=== PATIENT | female | born 2005 | race Caucasian/White ===

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

== ENCOUNTER 2024-01-19 11:54 | Emergency (ER) | payer OTHER, SELFPAY ==
[2024-01-19 11:58] VITALS: BP 123/77; PULSE 93; RESP 20; TEMP 36.6; O2SAT 99
--- NOTE | 2024-01-19 12:35 | ED.SKABFB ---
HPI - Skin/Abscess/Foreign Bdy General Chief complaint: Skin/Abscess/Foreign Body Stated complaint: rash Time Seen by Provider: 01/19/24 12:15 Source: patient, RN notes reviewed and old records reviewed Mode of arrival: ambulatory Limitations: no limitations History of Present Illness HPI narrative: 18 year old female presents to [facility] with complaints of rash to her right antecubital area and also behind her left knee. Patient reports that she was treated with antibiotic and ointment in October and did get better but not completely resolved. Patient reports that initially had some yellow crusty scabbing now areas are just dry and crusty with continued itching present. MD complaint: rash Onset (ago): month(s) (3 initially yellowish crusting ) Location: RUE (antecubical) and LLE Severity: moderate Quality: pruritic Treatments prior to arrival: other (previously treated with antibiotic and mupirocin) Related Data Allergies Allergy/AdvReac Type Severity Reaction Status Date / Time No Known Allergies Allergy Verified 12/14/23 10:51 Review of Systems Review of Systems: CONSTITUTIONAL: Denies fever, chills, or sweats. CARDIOVASCULAR: Denies chest pain, palpitations, or edema. RESPIRATORY: Denies cough or dyspnea. SKIN: Reports rash to her right forearm in antecubital area which started as pustules now red irritated rash, also rash to area behind left knee red irritated no drainage. MUSCULOSKELETAL: Denies joint pain or myalgia. NEUROLOGIC: Denies headache, numbness, or weakness. All systems reviewed & are unremarkable except as noted in HPI and below PMFSH Past Medical History Medical History Fracture of right wrist Surgical History Surgical History No history of previous surgery Family History Family History Mother Family history non-contributory Social History Social History Smoking status: Never smoker Alcohol intake: never Substance use: never Living arrangements: with family Additional living arrangements comments: Lives with uncle Occupation/Education: student Gender identity (if verbalized by the patient): Female Comments At time of signature, agree with nursing past medical, surgical, social and family history. There is no relevant family history pertinent to the presenting complaint Exam Narrative: GENERAL: Well-appearing, well-nourished, and in no acute distress. HEAD: Normocephalic, atraumatic. EYES: PERRLA, conjunctivae clear, and EOMI. ENT: Mucous membranes moist. Oropharynx without edema, erythema or lesions. NECK: Supple. No lymphadenopathy CHEST: Clear to auscultation. No respiratory distress.SAO2 99% on room air HEART: Regular rate and rhythm. SKIN: Warm, dry.? Patches of erythema red sores with itching no drainage present initially rash had yellowish crusting when first treated now red crusty NEURO:? Alert and oriented x3. PSYCH: Normal mood and affect Course Course Emergency Course: Patient is aware of diagnosis, understands and agrees to treatment plan.? Anticipatory guidance given.? Patient agrees to follow-up as directed and is aware of reasons to seek care at the emergency department. Portions of this record may have been created with voice recognition software Level of Care: Express Care Visit Vital Signs Vital signs: Vital Signs Temperature 36.6 C 01/19/24 11:58 Pulse Rate 93 01/19/24 11:58 Respiratory Rate 20 01/19/24 11:58 Blood Pressure 123/77 01/19/24 11:58 Pulse Oximetry 99 01/19/24 11:58 Oxygen Delivery Room Air 01/19/24 11:58 Temperature 36.6 C 01/19/24 11:58 Pulse Rate 93 01/19/24 11:58 Respiratory Rate 20 01/19/24 11:58 Blood Pressure 123/77 01/19/24 11:58 Pulse Oximetr
== END 2024-01-19 12:52 | disposition home or self-care (01) ==
PROVIDERS: Emergency Provider Registered Nurse
DX: L01.00 Impetigo, unspecified (principal)
CPT/HCPCS: 99213; G0463

== ENCOUNTER 2024-04-24 08:45 | Emergency (ER) | payer OTHER, SELFPAY ==
--- NOTE | ~2024-04-24 | XR_ITS ---
EXAMINATION: XR chest 2V DATE: 04/24/2024 09:35 INDICATION: Cough. TECHNIQUE: Frontal and lateral views of the chest were obtained. COMPARISON: Chest 2 views 06/20/2022 FINDINGS: There is no pneumonia, pleural effusion, or pneumothorax. The heart size is normal. IMPRESSION: 1. No acute cardiopulmonary disease. Reviewed, dictated and finalized at location A. [facility]
[2024-04-24 08:59] VITALS: BP 137/88; PULSE 122; RESP 20; TEMP 36.3; O2SAT 97
--- NOTE | 2024-04-24 09:10 | ED.GENADULT ---
HPI - General Adult General Chief complaint: Upper Respiratory Infection Stated complaint: Sore Throat/Cough/Vomiting Source: patient Mode of arrival: ambulatory Limitations: no limitations History of Present Illness HPI narrative: Patient presents for evaluation of sick symptoms since yesterday. Symptoms include hot flashes, chills, headache, sore, throat cough, shortness of breath, wheezing, nausea and vomiting. No diarrhea or otalgia. No recent sick contacts to her knowledge. She does not smoke. She has an albuterol inhaler which she used. She is not sure whether it made much of a difference in her symptoms. She does not have asthma. She is not taking any other medications for symptoms. Related Data Allergies Allergy/AdvReac Type Severity Reaction Status Date / Time No Known Allergies Allergy Verified 12/14/23 10:51 Review of Systems Review of Systems: CONSTITUTIONAL: Reports hot flashes and chills. EYES: Denies visual changes, redness, or discharge. ENT: Reports sore throat. Denies rhinorrhea, congestion, or otalgia. CARDIOVASCULAR: Denies chest pain, palpitations, or edema. RESPIRATORY: Reports cough, wheezing and shortness of breath GASTROINTESTINAL: Reports nausea and vomiting. Denies abdominal or diarrhea. GENITOURINARY: Denies dysuria or hematuria. SKIN: Denies rash or itching. MUSCULOSKELETAL: Denies back pain, joint pain, or myalgia. NEUROLOGIC: Reports headache. Denies numbness, dizziness, or weakness. PSYCHIATRIC: Denies anxiety or depression. [facility] Past Medical History Medical History Fracture of right wrist Surgical History Surgical History No history of previous surgery Family History Family History Mother Family history non-contributory Social History Social History Smoking status: Never smoker Alcohol intake: never Substance use: never Living arrangements: with family Additional living arrangements comments: Lives with uncle Occupation/Education: student Gender identity (if verbalized by the patient): Female Exam Narrative: GENERAL: Well-appearing, well-nourished, and in no acute distress. HEAD: Normocephalic, atraumatic. EYES: PERRLA and EOMI. ENT: Nares clear, no rhinorrhea or epistaxis. Mucous membranes moist. Oropharynx without tonsillar hypertrophy exudate or other lesions. Bilateral TMs pearly villa nonbulging NECK: Supple. No adenopathy or masses. No carotid bruits or JVD CHEST: Wheezing noted in all lung coronado. Cough present on exam. HEART: Regular rate and rhythm. No murmur heard. Normal peripheral pulses. ABDOMEN: Soft, nontender, nondistended, normal active bowel sounds. EXTREMITIES: Normal range of motion. No edema. SKIN: Warm, dry, no rash. NEURO: No focal deficits. Alert and oriented x3. PSYCH: Normal mood and affect. Course Course Emergency Course: This is a 19-year-old female who presented for evaluation of sick symptoms. COVID, influenza, strep were all negative. Chest x-ray was performed due to wheezing and there was no evidence of acute cardiopulmonary disease. Exam is consistent with acute viral syndrome. Will discharge with prednisone and Zofran. She ready has an albuterol inhaler at home. Follow up with primary provider. Go to the ER for worsening symptoms. Her heart rate normalized until the 80's. Patient in agreement with plan of care. Level of Care: Express Care Visit Vital Signs Vital signs: Vital Signs Temperature 36.3 C L 04/24/24 08:59 Pulse Rate 122 H 04/24/24 08:59 Respiratory Rate 20 04/24/24 08:59 Blood Pressure 137/88 04/24/24 08:59 Pulse Oximetry 97 04/24/24 08:59 Oxygen Delivery Room Air 04/24/24 08:59 Temperature 36.3 C L 04/24/24 08:59 Pulse Rate 122 H 04/24/24 08:59 Respiratory Rate 20 04/24/24 08:59 Blood Pressure 137/88 04/24/24 08:59 Pulse Oximetry 97 04/24/24 08:59 Oxygen Delivery Room Air 04/24/24 08:59 Medical Decision Making Vital Signs Vital Signs: Vital Signs Temperature 36.3 C L 04/24/24 08:59 Pulse Rate 122 H 04/24/24 08:59 Respiratory Rate 20 04/24/24 08:59 Blood Pressure 137/88 04/24/24 08:59 Pulse Oximetry 97 04/24/24 08:59 Oxygen Delivery Room Air 04/24/24 08:59 Temperature 36.3 C L 04/24/24 08:59 Pulse Rate 122 H 04/24/24 08:59 Respiratory Rate 20 04/24/24 08:59 Blood Pressure 137/88 04/24/24 08:59 Pulse Oximetry 97 04/24/24 08:59 Oxygen Delivery Room Air 04/24/24 08:59 Lab Data Labs: Lab Results 04/24/24 Range/Units 09:35 POC Influenza A Ag Negative (Negative) POC Influenza B Ag Negative (Negative) POC SARS CoV-2 Ag Negative (Negative) POC Grp A Strep Screen Negative (Negative) Imaging Data Radiologist's impression: EXAMINATION: XR chest 2V DATE: 04/24/2024 09:35 INDICATION: Cough. TECHNIQUE: Frontal and lateral views of the chest were obtained. COMPARISON: Chest 2 views 06/20/2022 FINDINGS: There is no pneumonia, pleural effusion, or pneumothorax. The heart size is normal. IMPRESSION: 1. No acute cardiopulmonary disease. Discharge Plan Discharge Clinical Impression: Acute viral syndrome Patient Disposition: Home, Self-Care Condition: Stable Instructions: Antibiotic Form, Viral Syndrome (ED) Patient Language: Malawian Prescriptions: New prednisone 20 mg tablet 40 mg PO DAILY Qty: 10 0RF ondansetron 4 mg tablet,disintegrating 4 mg PO Q6H PRN (Reason: nausea and vomiting) Qty: 15 0RF No Action mupirocin 2 % ointment 1 applic topical BID Qty: 22 0RF Rx Instructions: apply to rash 2 times daily cephalexin 500 mg capsule 500 mg PO Q8H Qty: 30 0RF Rx Instructions: take all of prescription Follow-up/Referrals: Lew Lennon DO [Physician] - Stand Alone Forms: Work/School Release IP Time of Disposition: 09:49
[2024-04-24 09:38] LABS: EDCOVIDSCREEN Negative (Negative); EDINFLUASCREEN Negative (Negative); EDINFLUBSCREEN Negative (Negative); EDSTREPNEGPOS1 Negative (Negative)
[2024-04-24 09:50] VITALS: PULSE 88
== END 2024-04-24 09:50 | disposition home or self-care (01) ==
PROVIDERS: Emergency Provider Nurse Practitioner
DX: B34.9 Viral infection, unspecified (principal); Z20.822 Contact with and (suspected) exposure to COVID-19
CPT/HCPCS: 71046; 87081; 87426; 87804; 87880; 99213; G0463

== ENCOUNTER 2024-09-25 11:03 | Emergency (ER) | payer OTHER, SELFPAY ==
--- NOTE | ~2024-09-25 | XR_ITS ---
EXAMINATION: XR foot RT min 3V DATE: 09/25/2024 11:25 INDICATION: Pain and bruising at the right fourth toe post fall TECHNIQUE: Dorsoplantar, two oblique and lateral views of the right foot were obtained. COMPARISON: None. FINDINGS: Nondisplaced oblique extra articular fracture at the proximal metaphyseal region of the right fourth proximal phalanx. Alignment remains essentially anatomic. No other fractures identified. Joint spaces are normal. Soft tissues are unremarkable. IMPRESSION: 1. Nondisplaced extra articular fracture at the fourth proximal phalanx. Reviewed, dictated and finalized at location A.
--- OUTSIDE RECORDS SUMMARY | 2024-09-25 11:05 | XMS_ITS | Referral Summary ---
Author Organization [facility] Address [address] [place] [address] Care Team Providers Care Heavy Truck Technician Name Role Phone No, Physician Primary Care Provider [phone] Allergies No known active allergies Medications cetirizine (ZyrTEC) 10 mg tablet Take 1 tablet (10 mg total) by mouth daily for 5 days. 5 tablet 10/31/19 18 Active promethazine-DM (PROMETHAZINE-DM) 1.25-3 mg/mL syrup Take 5 mL by mouth 4 (four) times a day as needed for cough (And runny nose) Collaborating physician Mulugeta Barnett MD 118 mL 05/22/19 22 Active ondansetron ODT (ZOFRAN-ODT) 4 mg disintegrating tablet Take 1 tablet (4 mg total) by mouth every 8 (eight) hours as needed for nausea or vomiting 20 tablet 08/07/19 23 Active ibuprofen (ADVIL,MOTRIN) 600 mg tablet Take 1 tablet (600 mg total) by mouth every 6 (six) hours as needed for pain 30 tablet 08/07/19 23 Active albuterol HFA (PROVENTIL HFA,VENTOLIN HFA,PROAIR HFA) 90 mcg/actuation inhaler Inhale 2 puffs every 4 (four) hours as needed for wheezing or shortness of breath 1 each 08/07/19 23 Active cetirizine (ZyrTEC) 10 mg tablet Take 1 tablet (10 mg total) by mouth daily as needed for allergies 30 tablet 08/07/19 23 Active metoclopramide (REGLAN) 10 mg tabletIndications: Cancer Chemotherapy-Induc ed Nausea and Vomiting Take 1 tablet (10 mg total) by mouth every 6 (six) hours 20 tablet 07/04/19 24 Active HYDROcodone-acetam inophen (NORCO) 5-325 mg per tabletIndications: Pain Take 1 tablet by mouth every 6 (six) hours as needed for pain (cough) 12 tablet 07/04/19 24 Active azithromycin (ZITHROMAX) 500 mg tablet 1 tab qhs for 3 days 3 tablet 07/04/19 24 Active ondansetron (ZOFRAN) 4 mg tablet Take 1 tablet (4 mg total) by mouth every 4 (four) hours as needed for nausea or vomiting 15 tablet 09/01/19 24 Active albuterol HFA (PROVENTIL HFA,VENTOLIN HFA,PROAIR HFA) 90 mcg/actuation inhaler Inhale 1-2 puffs every 6 (six) hours as needed for shortness of breath or wheezing 1 each 09/01/19 24 Active Active Problems Problem Noted Date Diagnosed Date Suspected COVID-19 virus infection 05/22/2021 Nausea 05/22/2021 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 Denies 09/01/2023 Comments No Sex and Gender Information Value Date Recorded Sex Assigned at Not on file Legal Sex Female 10:43 AM SCIENCE ANALYST Gender Identity Not on file Sexual Orientation Not on file Last Filed Vital Signs Vital Sign Reading Time Taken Comments Blood Pressure 154/87 09/01/2023 6:38 AM CDT Pulse 97 09/01/2023 5:40 AM CDT Temperature 36.4 C (97.6 F) 09/01/2023 5:40 AM CDT Respiratory Rate 20 09/01/2023 5:40 AM CDT Oxygen Saturation 97% 09/01/2023 6:27 AM CDT Inhaled Oxygen Concentration - - Weight 65.8 kg (145 lb) 07/04/2023 2:39 PM SCIENCE ANALYST Height 157.5 cm (5' 2 ) 07/04/2023 2:39 PM SCIENCE ANALYST Body Mass Index 26.52 07/04/2023 2:39 PM SCIENCE ANALYST Plan of Treatment Not on file Insurance [employer] Member Subscriber Plan / Payer (Ef fective 2021-Present) Name:Itz Le Relation to Subscriber:Child Name:SYDNIE TEIXEIRA Date of :1980 Address: [address] [place] [address] Payer ID:[id number] (NAIC) Type:CIGNA HMO/PPO Address: [address] CIGNA ALLEGIANCE C[employer] [facility] IDPA IDPA Care Teams Heavy Truck Technician Relationship Specialty Start Date End Date No, Physician PCP - General 07/04/23
--- OUTSIDE RECORDS SUMMARY | 2024-09-25 11:05 | XMS_ITS | Data Portability ---
Author Organization [facility], Main Office Address [address] [place] [address] Assessment No assessment recorded. Plan of Treatment Reminders Order Date Submit Date Provider Last Modified By Organization Details Last Modified Time Details Appointments None recorded . Lab rapid strep group A, throat 023 08/02/[address] [place], [place], [address], 10:40:58 Referral None recorded . Procedures None recorded . Surgeries None recorded . Imaging None recorded . Medication Orders None recorded . Patient TargetsNo targets recorded. Patient InstructionsNo instructions recorded. Reason for Referral None Reported. Results Created Date Observation Date Name Description Value Unit Range Abnormal Flag Note LastModifiedBy Organization Detail LastModifiedTime 08/02/1908/01/2022 rapid strep group A, throa t STREP A negati ve Not Available [address] [place], [place], [address], 08/01/2022 09:43:27 Result Notes None recorded. Problems Name Problem SNOMED Code Status Onset Date Resolution Date Notes Provider Name and Address Organization Details Recorded Time Pain in throat 864191489 Active 023 Ken Staton MD [address], [place], [address] , [facility] 08/01/2022 09:43:23 Asthma 371830234 Active 023 Ken Staton MD [address], [place], [address] , [facility] 08/02/2022 06:01:48 Problem Notes None recorded. Medical Equipment None Reported. Medications Name Sig Start Date Stop Date Status Note LastModified by Organization Details LastModified Time cyclobenzap rine 10 mg tablet TAKE 1 TABLET BY MOUTH THREE TIMES DAILY FOR UP TO 14 DAYS NEEDED FOR MUSCLE SPASMS 07/04 completed Not Available Not Available Not Available prednisone 10 mg tablet 07/04 completed Not Available Not Available Not Available cetirizine 10 mg tablet TAKE 1 TABLET BY MOUTH EVERY DAY 07/04 completed Not Available Not Available Not Available azithromyci n 250 mg tablet TK 2 TS PO ON DAY 1, THEN TK 1 T PO D FOR 4 DAYS 07/04 completed Not Available Not Available Not Available permethrin 5 % topical cream 07/04 completed Not Available Not Available Not Available sulfamethox azole 800 mg-trimetho prim 160 mg tablet TAKE 1 TABLET BY MOUTH EVERY 12 HOURS WITH MEALS FOR 7 DAYS 08/01 completed Not Available Not Available Not Available cephalexin 500 mg capsule TAKE 1 CAPSULE BY MOUTH THREE TIMES DAILY WITH MEALS FOR 7 DAYS 07/04 completed Not Available Not Available Not Available promethazin e 25 mg tablet TAKE 1 TABLET BY MOUTH EVERY 4 TO 6 HOURS NEEDED FOR NAUSEA 07/04 completed Not Available Not Available Not Available mupirocin 2 % topical ointment APPLY SMALL AMOUNT TOPICALLY TO THE AFFECTED AREA THREE TIMES DAILY 07/04 completed Not Available Not Available Not Available ibuprofen 600 mg tablet TAKE 1 TABLET BY MOUTH EVERY 6 HOURS NEEDED FOR PAIN 07/04 completed Not Available Not Available Not Available albuterol sulfate HFA 90 mcg/actuati on aerosol inhaler Inhale 2 puffs every 4 hours by inhalatio n route as needed. active Not Available Not Available No t Available fluticasone propionate 50 mcg/actuati on nasal spray,suspe nsion active Not Available Not Available Not Available naproxen 500 mg tablet TAKE 1 TABLET BY MOUTH TWICE DAILY NEEDED FOR PAIN 07/04 completed Not Available Not Available Not Available azithromyci n 500 mg tablet TAKE 2 TABLETS BY MOUTH TODAY 07/04 completed Not Available Not Available Not Available nitrofurant oin monohydrate /macrocryst als 100 mg capsule 07/04 completed Not Available Not Available Not Available Vitals Date Recorded Body mass index (BMI) Body height Oxygen saturation Oxygen saturation in Arterial blood by Pulse oximetry Heart rate Body temperature Body weight Systolic blood pressure Diastolic blood pressure Provider Name and Address Organization Details Last Updated DateTime 3 24 kg/m2 157.48 cm 96 % 96 % 109 /min 98.1 [degF] 00359.6 g 122 mm[Hg] 80 mm[Hg] Not Available [facility] 3 01:52:56 Date Recorded Body height Body mass index (BMI) Body mass index (BMI) [Percentile] Per age and sex Body weight Body temperature Heart rate Oxygen saturation Oxygen saturation in Arterial blood by Pulse oximetry Systolic blood pressure Diastolic blood pressure Provider Name and Address Organization Details Last Updated DateTime 3 157.48 cm 23.6 kg/m2 72 % 85763.4 2 g 97.9 [degF] 79 /min 99 % 99 % 122 mm[Hg] 80 mm[Hg] ANGELA Neumann [place] - [facility] 3 09:38:58 Social History None recorded. Functional Status None recorded. Mental Status None recorded. Family History Relationship Description Onset Age of this Age Resolved Age Notes LastModified by Organization Details LastModified Time Maternal Grandmother Diabetes mellitus [id number] Not available 07/18/2022 01:52:40 Maternal Grandmother Hypertensive disorder [id number] Not available 07/18/2022 01:52:40 Medical History Condition Response BLINDNESS N RHEUMATIC FEVER N KIDNEY STONES N BLADDER PROBLEMS N MRSA N OTHER # 1 N POLIO N LUNG DISEASE/DISORDER N HISTORY OF DRUG ABUSE N RADIATION / CHEMOTHERAPY N COPD N Other # 2 N BLOOD DISEASES N SURGERY N EAR OR HEARING PROBLEMS N MUMPS N SHINGLES N FEMALE PROBLEMS / INFECTIONS N DEPRESSION (INCLUDING POST ) N BOWEL PROBLEMS N STROKE/TIA N THYROID DISEASE N ULCERS N BENIGN PROSTATIC HYPERPLASIA N MEASLES N CERVICALGIA N TB SKIN TEST N HYPOTENSION N MYOCARDIAL INFARCTION N PARAPELGIA N OBESITY N GERD/NAUSEA N ANEURYSM N URINARY/BLADDER/KIDNEY PROBLEMS N CORONARY ARTERY DISEASE (CAD) N MENIERE'S DISEASE N ADDICTION CONCERNS N ENDOMETRIOSIS N USE OF BLOOD THINNERS N SKIN PROBLEMS N EMPHYSEMA N GASTROINTESTINAL DISORDER N MUSCLE,JOINT OR BONE PROBLEMS N GASTROINTESTINAL BLEEDING N BLOOD CLOTS N ASTHMA N CATARACTS N ERECTILE DYSFUNCTION N GI PROBLEMS N CHF N Low Testosterone N NEUROPATHY N INFERTILITY N AIDS/HIV N FRACTURES N CHEMOTHERAPY / RADIATION N VISION/EYE PROBLEMS N LIVER DISEASE N MALE HYPOGONADISM N HYPERTENSION N TOURETTE'S N ANXIETY DISORDER N BLOOD TRANSFUSION N ANEMIA/BLOOD DISORDER N CHRONIC EAR INFECTIONS N BRONCHITIS Y TUBERCULOSIS N GLAUCOMA N FOOT PROBLEM N DIVERTICULITIS N SLEEP APNEA N CHICKENPOX N ALLERGIES/HAYFEVER N INFECTIOUS DISEASE N PROSTATE N HEART ARRHYTHMIA N INSOMNIA N HIGH CHOLESTEROL / HYPERLIPIDEMIA N EYE PROBLEMS N HYPERTHYROIDISM N EATING DISORDER N EDEMA N CHRONIC PAIN SYNDROME N CAROTID BLOCKAGE N CONSTIPATION N BACK / NECK PROBLEMS N HAVE YOU BEEN HOSPITALIZED OR SEEN IN [facility] IN THE PAST YEAR ? N ATHEROSCLEROSIS N BREAST PROBLEMS N DIALYSIS N ECZEMA N FIBROMYALGIA N OSTEOPOROSIS N ARTHRITIS N NO SIGNIFICANT PAST MEDICAL HISTORY N APPENDICITIS N DIABETES, TYPE N BAD TEETH N HEARTBURN / REFLUX N ADD/ADHD N AUTISM SPECTRUM DISORDER (ASD) N HEPATITIS / LIVER DISEASE N PULMONARY DISEASE N GOUT N SLEEP DISORDER N ALZHEIMER'S DISEASE N PAIN N DEMENTIA N HERPES N SEIZURES/EPILEPSY N HEADACHES/MIGRAINES N VASCULAR DISEASE N PACEMAKER N DIZZINESS N HEART DISEASE/HEART PROBLEMS N KIDNEY DISEASE N SCARLET FEVER N MULTIPLE SCLEROSIS N DEVELOPMENTAL OR BEHAVIORAL DISORDERS N MENTAL DISORDER/ILLNESS N CANCER: SPECIFY N CARDIAC ARRHYTHMIA N PNEUMONIA N ATRIAL FIBRILLATION N Gall Stones N PULMONARY EMBOLISM N AUTOIMMUNE DISEASE N Gynecological History Statement/Question Response How many live births 0 Flow Moderate Date of LMP 06/02/2022 Frequency of Cycle (Q days) 28 Sexually Active? Y Menses Monthly Y STIs/STDs N Duration of Flow (days) 5 Current Control Method None Age at Menarche 11 Obstetrics History GPAL:G 0 P 0 0 1 0 Type Value Induced 1 Total 0 Past Encounters Encounter ID Performer Location Encounter Start Date Encounter Closed Date Diagnosis/Indication Diagnosis SNOMED-CT Code Diagnosis ICD10 Code Diagnosis Note [id number] Ken Staton MD [facility] [address] [place] [address] 07/04/2022 00:00:00 07/04/2022 20:43:18 [id number] Ken Staton MD [facility] [address] [place] [address] 08/01/2022 09:27:38 08/01/2022 09:55:22 Pain in throat 358628660 R07.0 Gargles with warm salt water. Drink hot tea with honey and use throat lozenges and ibuprofen. Asthma 115476596 J45.90 9 Continue inhalers Health Concerns Section Related Observation LastModified by Organization Detai ls LastModified Time None Recorded Concern Status LastModified by Organization Details LastModified Time None Recorded Advance Directives Directive None Recorded Payers Encounter Date Sequence Insurance Name Policy Number Policy Gonzalez Covered Member ID Gonzalez Member ID Guarantor Name 08/01/2022 1 [facility] [employer] MANAGEMENT (PPO) Sydnie Teixeira [id number] Rafael Chaney Notes Date Note Type Note Provider Name and Address Organization Details Recorded Time 08/01/2022 text/html Here today c/o s.t. It is red. Has had strept throat in the past. Doing ok with meds. Uses inhaler 3 times a day and it helps. Ken Staotn MD [address] [facility] [address], [place], [address], [place] [facility] 08/02/2022 06:02:28 OBGyn Episode No OBEpisode recorded.
--- OUTSIDE RECORDS SUMMARY | 2024-09-25 11:05 | XMS_ITS | Clinical Summary ---
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 Family History Medical History Relation Name Comments Cancer Paternal Grandmother Relation Name Status Comments Paternal Grandmother Alive Social History Tobacco Use Types Packs/Day Years [...] on file Legal Sex Female 10:43 AM DIPLOMATIC INTERPRETER Gender Identity Not on file Sexual Orientation Not on file Obstetrics History Last Filed Vital Signs Vital Sign Reading Time Taken Comments Blood Pressure 154/87 09/01/2023 6:38 AM CDT Pulse 97 09/01/2023 5:40 AM CDT Temperature 36.4 C (97.6 F) 09/01/2023 5:40 AM CDT Respiratory Rate 20 09/01/2023 5:40 AM CDT Oxygen Saturation 97% 09/01/2023 6:27 AM CDT Inhaled Oxygen Concentration - - Weight 65.8 kg (145 lb) 07/04/2023 2:39 PM DIPLOMATIC INTERPRETER Height 157.5 cm (5' 2 ) 07/04/2023 2:39 PM DIPLOMATIC INTERPRETER Body Mass Index 26.52 07/04/2023 2:39 PM DIPLOMATIC INTERPRETER Plan of Treatment Health Maintenance Due Date Last Done Comments Depression Screening 2004 Hepatitis C Screening 2004 Pneumococcal vaccine <65 (1 of 1 - PPSV23) 01/30/2010 05/27/2005, 2004, 2004, Additional history exists Meningococcal B Vaccine (1 o f 2 - Standard) 2020 Regular Well Visit/Exam 18-64 01/30/2022 DTaP/Tdap/Td Vaccine (7 - Td or Tdap) 12/21/2024 12/21/2014, 01/16/2010, 05/27/2005, Additional history exists Influenza Vaccine (Season Ended) 2025 08/10/2018, 03/27/2016, 04/16/2012, Additional history exists Hepatitis B Screening Completed 2004 , 2004, 2004, Additional history exists Varicella Vaccines Completed 03/02/2008, 03/06/2005 HPV Vaccines Completed 11/04/2016, 11/0 01/2016, 12/20/2015 Meningococcal Vaccine Completed 02/07/2022, 016 Insurance [facility] ALLEGIANCE CIGNA ALLEGIANCE CIGNA ALLEGIANCE IDPA [facility] IDPA Care Teams Puppet Master Relationship Specialty Start Date End Date No, Physician PCP - General 07/04/23
--- OUTSIDE RECORDS SUMMARY | 2024-09-25 11:06 | XMS_ITS | Data Portability ---
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 disability [email or web address] Not available 04/2017 14:05:01 Mother Hypertensive disorder [email or web address] Not available 09/16 14:05:17 Medical History Condition Response Blood Diseases N Ear or Hearing Problems N Thyroid Problems N Depression N Developmental or Behavioral Disorders N Skin Problems N Premature N Anemia N Constipation N Anxiety Disorder N Diabetes N Muscle, Joint, or Bone Problems N Bedwetting N Vision or Eye Problems N Heart Problems/Murmur N Seizures/Epilepsy N Head Injury/Concussion N Cancer N Asthma N Allergies N ADHD N Bladder or Kidney Problems N Headaches N Chicken Pox N Autism Spectrum Disorder (ASD) N Gynecological History Statement/Question Response Flow Heavy Date of LMP 07/30/2022 Frequency of Cycle (Q days) 28 Menses Monthly Y Duration of Flow (days) 5 Age at Menarche 10 Current Control Method None LMP Definite Obstetrics History GPAL:G 1 P 0 0 1 0 Type Value Induced 1 Living 0 Total 1 Immunizations Vaccine Type Date Status Note Provider Nam e and Address Organization Details Recorded Time HPV9 6 completed Not Available [facility] 06/05/2019 02:41:25 Meningococcal MCV4O 6 completed Not Available [facility] 06/05/2019 02:31:36 HPV9 6 completed Not Available [facility] 06/05/2019 02:46:39 Influenza, split virus, quadrivalent, PF 6 completed Not Available [facility] 06/05/2019 02:44:54 HPV9 7 completed Not Available [facility] 06/05/2019 02:33:33 Hep A, ped/adol, 2 dose 8 completed [place], [place] [facility] 12/20/2014 18:13:46 pneumococcal conjugate PCV 7 4 completed Effie Noy[place], [place] [facility] 12/20/2014 18:13:46 Hib, unspecified formulation 5 completed [place] [facility] 12/20/2014 18:13:46 IPV 5 completed [place] [facility] 12/20/2014 18:13:46 influenza, unspecified formulation 2 completed [place] [facility] 12/20/2014 18:13:46 DTaP 5 completed Effie [place] [facility] 12/20/2014 18:13:46 pneumococcal conjugate PCV 7 5 completed [place] [facility] 12/20/2014 18:13:46 DTaP 5 completed [place] [facility] 12/20/2014 18:13:46 influenza, unspecified formulation 2 completed [place] [facility] 12/20/2014 18:13:46 DTaP 4 completed [place] [facility] 12/20/2014 18:13:46 pneumococcal conjugate PCV 7 5 completed [place] [facility] 12/20/2014 18:13:46 influenza nasal, unspecified formulation 1 completed [place] [facility] 12/20/2014 18:13:46 Hep B, adolescent or pediatric 4 completed [place] [facility] 12/20/2014 18:13:46 varicella 8 completed [place] [facility] 12/20/2014 18:13:46 IPV 4 completed [place] [facility] 12/20/2014 18:13:46 Hib, unspecified formulation 5 completed [place] [facility] 12/20/2014 18:13:46 IPV 5 completed [place] [facility] 12/20/2014 18:13:46 varicella 5 completed [place] [facility] 12/20/2014 18:13:46 DTaP 6 completed [place] [facility] 12/20/2014 18:13:46 Hep B, adolescent or pediatric 4 completed [place] [facility] 12/20/2014 18:13:46 Hep B, adolescent or pediatric 5 completed [place] [facility] 12/20/2014 18:13:46 Hep B, adolescent or pediatric 5 completed [place] [facility] 12/20/2014 18:13:46 MMR 8 [place] [facility] 12/20/2014 18:13:46 Hib, unspecified formulation 6 completed [place] [facility] 12/20/2014 18:13:46 DTaP-IPV 0 completed [place] [facility] 12/20/2014 18:13:46 pneumococcal conjugate PCV 7 6 completed [place] [facility] 12/20/2014 18:13:46 MMR 5 [place] [facility] 12/20/2014 18:13:46 Hep A, ped/adol, 2 dose 7 completed [place] [facility] 12/20/2014 18:13:46 Hib, unspecified formulation 4 completed [place] [facility] 12/20/2014 18:13:46 Tdap 5 completed Not Available [facility] 06/05/2019 02:29:58 meningococcal conjugate quadrivalent, MenACWY-TT (MCV4) 2 completed [place], [place] [facility] 02/07/2022 12:24:24 Past Encounters Encounter ID Performer Location Encounter Start Date Encounter Closed Date Diagnosis/Indication Diagnosis SNOMED-CT Code Diagnosis ICD10 Code Diagnosis Note [id number] MD Jeanne Billy (Peds) [address] [address] 12/21/2014 15:36:07 12/21/2014 17:23:22 Well child [id number] discussed routine childcare administrator discussed safety and school performanc e discussed healthy weight with diet and exercise Otitis externa [id number] MD Jeanne Billy (Peds) [address] [address] 12/20/2015 15:20:34 12/20/2015 17:57:36 Well child 385766323 Z00.129 discussed routine childcare administrator discussed safety and school performanc e discussed healthy weight with diet and exercise Obesity 177910787 E66.09 weight reduction with diet and exercise [id number] [facility] [address] [place] [address] 03/27/2016 08:54:24 03/28/2016 08:20:38 Active or passive immunization 885162584 Z23 [id number] [facility] [address] [place] [address] 09/27/2016 13:52:03 10/04/2016 12:10:48 Seasonal allergic rhinitis 974351592 J30.2 Infection of skin 520980 000 L08.9 Sore throat 730462812 J0 2.9 RApid strept negative, post-nasal drip. Supportive care discussed. [id number] [facility] [address] [place] [address] 11/04/2016 14:12:37 11/05/2016 12:03:08 Well child 273528747 Z00.129 discussed routine childcare administrator discussed safety and school performanc e discussed healthy weight with diet and exercise [id number] [facility] [address] [place] [address] 04/21/2017 12:09:35 04/22/2017 10:15:51 Viral upper respiratory tract infection 693198882 J06.9 [id number] Tomer zamora MD [facility] [address] [place] [address] 02/07/2022 12:04:26 02/11/2022 16:15:08 Active or passive immunization 949164231 Z23 [id number] [facility] [address] [place] [address] 04/01/2022 10:58:49 04/05/2022 14:01:32 Impetigo 56185938 L01.00 -To use as directed.- To alert clinic if no improvemen t and will swab area on .- To alert clinic if any new or worsening symptoms. Pruritic rash 07650131 L 28.2 -to help with itching. [id number] YULY Rod NP [facility] - Financial Reconciliation - [facility] [address] [place] [address] 04/25/2022 09:26:53 04/30/2022 10:46:55 Eruption 034309857 R21 -To use as directed. Tinea pedis 2909483 B35. 3 Bite of bed bug 90934192 0 W57.XXXA -Scabies vs. bed bugs. Will cover with treatment. [id number] YULY Rod NP [facility] [address] [place] [address] 04/26/2022 11:48:28 04/30/2022 10:57:03 COVID-19 401340422 U07.1 -To quarantine for 5 days-[facility] fluid intake-Can use tylenol or ibuprofen for fever or pain-ER precaution s discussed. Unlikely cellulitis due to no pain or swelling. No warmth or worsening erythema today.-To alert clinic if any new or wosening symptoms. [id number] Henry Burciaga MD [facility] - Financial Reconciliation - [facility] [address] [place] [address] 06/20/2022 10:17:49 06/26/2022 12:06:37 Persistent cough 100740844 R05.3 -To take as directed.- Increase fluid intake-Can use tylenol or ibuprofen for fever or pain-To alert clinic if any new or wosening symptoms.- Will do lung recheck next week-ER precaution s. At [facility] risk of sexually transmitted infection 416196856 Z20.2 -Safe sex discussed. [id number] Henry Burciaga MD [facility] [address] [place] [address] 06/26/2022 10:26:43 07/18/2022 14:42:15 Persistent cough 672342573 R05.3 -Lungs improved.- Increase fluid intake-Cou gh can reside for up to one month after viral illness. Smoker 42514991 F17.679 [id number] Henry Burciaga MD [facility] - Financial Reconciliation - [facility] [address] [place] [address] 07/17/2022 10:35:31 07/24/2022 15:55:31 Increased frequency of urination 625773900 R35.0 -Will culture and wait to treat. Negative STI panel 2 weeks ago. On current cycle now. Back pain likely from menstrual cycle. Can take ibuprofen every 6 hours for pain. Pt states understand ing.-Incre ase fluid intake-To alert clinic if any new or worsening symptoms.- Pt to schedule annual exam. [id number] Henry Burciaga MD [facility] - Financial Reconciliation - [facility] [address] [place] [address] 08/07/2022 10:27:02 08/15/2022 09:40:16 History of urinary tract infection 7738986634 107 Z87.440 -To bring urine sample into office. Will culture-To take antibiotic s as directed. Side effects and directions of use discussed with patient.-T o take with probiotic- Increase fluid intake-To alert clinic if any new or worsening symptoms. Health Concerns Section Related Observation LastModified by Organization Detai ls LastModified Time None Recorded Concern Status LastModified by Organization Details LastModified Time None Recorded Advance Directives Directive None Recorded Payers Encounter Date Sequence Insurance Name Policy Number Policy Gonzalez Covered Member ID Gonzalez Member ID Guarantor Name 04/26/2022 1 [employer] (MEDICAID REPLACEMENT - HMO) Terrelloc Shiv [id number] Sydnie Teixeira 06/20/2022 1 [employer] (MEDICAID REPLACEMENT - HMO) Itz Shiv [id number] Sydnie Teixeira 06/26/2022 1 [employer] (MEDICAID REPLACEMENT - HMO) Itz Chaney [id number] Sydnie Teixeira 07/17/2022 1 [employer] (MEDICAID REPLACEMENT - HMO) Itz Chaney [id number] Sydnie Teixeira 08/07/2022 1 [employer] (MEDICAID REPLACEMENT - HMO) Itz Shiv [id number] Sydnie Teixeira Notes Date Note Type Note Provider Name and Address Organization Details Recorded Time 04/26/2022 text/html Upper Respirator y SymptomsReported bypatient.Location:[facility] Quality:productive cough;colored phlegm;congested Context:sick contact Associated Symptoms:no shortness of breath; no wheezing; no significant weight gain; no significant weight loss; no vomiting; no diarrhea; no rash; no nausea;yellow sputum;fever Telemedicine visit with patient. Pt reports fever that started today. Reports body aches and chills. Was seen yesterday for foot rash. Still denies any swelling or pain to feet. Sister is sick as well. No N/V/D. YULY Rod NP Attn: Accounting, [address] [place], [address], [facility] 04/29/2022 11:57:36 06/20/2022 text/html Upper Respirator y SymptomsReported bypatient.Location:hea d; chest; throat Quality:productive cough;sharp throat pain;congested Context:sick contact Associated Symptoms:chest pain;yellow sputum;wheezing;mornin g cough;sore throat Pt reports cough and pain with coughing for the past 3 days. States she is coughing up green phlegm. No fever. Had a recent in May. Requesting Nexplanon BC. She reports she has been under a lot of stress as well. Her cousin yesterday. Reports increased anxiety. No current SOB. She denies any other concerns or complaints. YULY Rod NP Attn: Accounting, [address] [place], [address], [facility] 06/20/2022 11:44:33 06/26/2022 text/html Asthma F/UReport ed bypatient.Severity:abl e to sleep during episode; does not interfere with daily activities Context:improving Associated Symptoms:no fever; no fatigue; no irritability; no cough; normal appetite; no changes in productivity; no shortness of breath Pt here today for a lung recheck. Last week patient noted rhonchi and wheezing through tout chest. She completed a 5 day course of azithromycin. No fever. She reports she is feeling better. No further cough. No concerns or complaints. She has not needed albuterol the last 2 days. She does admit to smoking. YULY Rod NP Attn: Accounting, [address] [place], [address], [facility] 07/16/2022 16:08:51 07/17/2022 text/html Urinary FrequencyReported bypatient.Context:succ ess with short term antibiotics Associated Symptoms:no abdominal pain; no chills; no constipation; no diarrhea; no dribbling; no pain with urination; no blood in the urine; no nausea; no vomiting; no nocturia; no urine odor; no straining; no incontinence; no fever; no urge incontinence;back pain;hesitancy;feeling s of urgency Pt here today for lower back pain and urinary frequency. Concerned for UTI. History of pyelonephritis. Currently on cycle. Had an in May. Bleeding is normal. No fever. No N/V/D. YULY Rod NP Attn: Accounting[address] [place], [address], [facility] 07/20/2022 11:56:43 08/07/2022 text/html Urinary FrequencyReported bypatient.Context:succ ess with short term antibiotics Associated Symptoms:no abdominal pain; no back pain; no chills; no constipation; no diarrhea; no dribbling; no pain with urination; normal emptying of bladder; no blood in the urine; no hesitancy; normal libido; no nausea; no vomiting; no nocturia; no urine odor; no straining; no incontinence; no fever; no urge incontinence Pt here today at [facility] for UTI symptoms. Pt was seen in the ER for possible pyelonephritis due to her history. Pt currently denies any symptoms. Was also treated for possible STI exposure. No other symptoms. No N/V/D. No rash. No fever. No back pain. No flank pain. All other ROS are negative. Has noted increased anxiety. She does not want to talk about it. LMP: 07/30/22. Regular. YULY Rod NP Attn: Accounting[address] [place], [address], [facility] 08/12/2022 15:19:07 OBGyn Episode No OBEpisode recorded.
--- NOTE | 2024-09-25 11:12 | ED.LOWEXIN ---
HPI - Extremity Injury (Lower) General Chief Complaint: Extremity Injury, Lower Stated Complaint: right foot injury Time Seen by Provider: 09/25/24 11:40 Source: patient and RN notes reviewed Mode of arrival: ambulatory Limitations: no limitations History of Present Illness HPI Narrative: 19-year-old female presents with concern for right foot pain. Reports she fell in on the steps and injured her toe. She reports bruising, pain with weight-bearing. MD complaint: foot injury Related Data Allergies Allergy/AdvReac Type Severity Reaction Status Date / Time No Known Allergies Allergy Verified 09/25/24 11:16 Review of Systems Review of Systems: CONSTITUTIONAL: Denies malaise, chills, sweats, or fever. SKIN: Denies rash or itching, open skin, laceration, abrasion, redness, warmth, swelling. MUSCULOSKELETAL: Reports right foot pain and bruising NEUROLOGIC: Denies numbness, weakness All systems reviewed & are unremarkable except as noted in HPI and below PMFSH Past Medical History Medical History Fracture of right wrist Surgical History Surgical History No history of previous surgery Family History Family History Mother Family history non-contributory Social History Social History Smoking status: Never smoker Alcohol intake: never Substance use: never Living arrangements: with family Additional living arrangements comments: Lives with uncle Occupation/Education: student Gender identity (if verbalized by the patient): Female Comments At time of signature, agree with nursing past medical, surgical, social and family history. There is no relevant family history pertinent to the presenting complaint Exam Narrative: GENERAL: Well-appearing, well-nourished, and in no acute distress. HEAD: Normocephalic, atraumatic. EYES: PERRLA, conjunctivae clear NECK: Supple. CHEST: Speaks in full sentences. No respiratory distress. HEART: Regular rate and rhythm. Normal and equal peripheral pulses. EXTREMITIES: Right foot digits have grossly normal strength and sensation, grossly normal range of motion. No edema noted. Ecchymosis noted to the dorsal aspect of the foot and digit for. Normal sensation with sensitivity to light touch and pain. Digit for tenderness. No open wounds, no skin tenting, no devitalized tissue or atrophy, no trophic changes, no obvious deformity, alignment normal, nearby joints and structures intact. Distal pulses palpable and equal bilaterally, skin warm, dry, pink. Capillary refill less than 3 seconds. SKIN: Warm, dry, no rash. NEURO: Alert and oriented x3. PSYCH: Normal mood and affect Course Course Emergency Course: Patient is aware of diagnosis, understands and agrees to treatment plan. Anticipatory guidance given. Patient agrees to follow-up as directed and is aware of reasons to seek care at the emergency department. Portions of this record may have been created with voice recognition software Level of Care: Express Care Visit Vital Signs Vital signs: Vital Signs Temperature 98.2 F 09/25/24 11:16 Pulse Rate 100 09/25/24 11:16 Respiratory Rate 18 09/25/24 11:16 Blood Pressure 115/75 09/25/24 11:16 Pulse Oximetry 100 09/25/24 11:16 Oxygen Delivery Room Air 09/25/24 11:16 Temperature 98.2 F 09/25/24 11:16 Pulse Rate 100 09/25/24 11:16 Respiratory Rate 18 09/25/24 11:16 Blood Pressure 115/75 09/25/24 11:16 Pulse Oximetry 100 09/25/24 11:16 Oxygen Delivery Room Air 09/25/24 11:16 Reviewed. MDM - Extremity Injury (Lower) MDM Narrative Medical decision making narrative: The patient was evaluated by myself in the [facility] care. History is obtained from patient who is an independent historian and physical exam was performed.? Available medical records were reviewed at this time. ? Exam findings show no acute concerns or changes; patient is non-toxic appearing and is in no distress. Patient is appropriate for outpatient treatment and follow-up. ? I have evaluated and discussed social determinants of health with the patient that could potentially impact subsequent diagnosis and treatment plans. ? Patients injury and pain is consistent with musculoskeletal etiology. No signs of neurological or vascular compromise on exam. Compartments and tissues are soft without signs of compartment syndrome. Pain is felt appropriate for further evaluation on an outpatient basis. Critical Care Time Critical Care Time Critical Care Time: No Discharge Plan Discharge Clinical Impression: Fracture of toe of right foot Patient Disposition: Home Condition: Stable Instructions: Toe Fracture (ED) Additional Instructions: Please rest, ice and elevate the affected extremity. Please take Motrin 600mg every 8 hours, as needed, for pain (take with food),you can take Tylenol in between doses. Follow up with Orthopedic Surgery in 1-2 days for further evaluation - please call for an appointment. Keep toe reyes taped and wear orthopedic shoe when walking. Please go to ER immediately for increased pain, tingling/numbness, swelling, redness, and fever Patient Language: Korean Prescriptions: New (DME) Walking Boot See Rx Instructions .Route .MEDSULY Qty: 1 0RF Rx Instructions: As directed Follow-up/Referrals: PHYSICIAN,EARLY CHILDHOOD WORKER [Primary Care Provider] - Mihai Arcos MD [Physician] - Stand Alone Forms: Work/School Release IP Time of Disposition: 11:39
[2024-09-25 11:16] VITALS: BP 115/75; PULSE 100; RESP 18; TEMP 36.8; O2SAT 100
== END 2024-09-25 11:56 | disposition home or self-care (01) ==
PROVIDERS: Emergency Provider Nurse Practitioner
DX: S92.514A Nondisplaced fracture of proximal phalanx of right lesser toe(s), initial encounter for closed fracture (principal); W10.9XXA Fall (on) (from) unspecified stairs and steps, initial encounter
CPT/HCPCS: 73630; 99214; G0463

== ENCOUNTER 2024-11-04 14:37 | Emergency (ER) | payer OTHER, SELFPAY ==
[2024-11-04 14:42] VITALS: BP 140/78; PULSE 61; RESP 20; TEMP 36.7; O2SAT 100
--- OUTSIDE RECORDS SUMMARY | 2024-11-04 14:49 | XMS_ITS | Clinical Summary ---
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
--- OUTSIDE RECORDS SUMMARY | 2024-11-04 14:49 | XMS_ITS | Referral Summary ---
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
--- OUTSIDE RECORDS SUMMARY | 2024-11-04 14:51 | XMS_ITS | Data Portability ---
Author Organization [facility] Address [address] [place] [address] Care Team Providers Care Rag Grader Name Role Phone MARY MULLEN Primary Care Provider Assessment No assessment recorded. Plan of Treatment Reminders Order Date Submit Date Provider Last Modified By Organization Details Last Modified Time Details Appointments None recorded. Lab culture, urine 2022 023 [facility], [address] [facility] [address], [address], 3 08:10:25 test, urine 2022 023 [facility] In-Office Order, Internal Use Only DO Not Attach Compendium DO Not Attach Compendium, Do Not Delete/merge, [id number] 3 14:12:32 urinalysis, dipstick 2022 023 [facility] In-Office Order, Internal Use Only DO Not Attach Compendium DO Not Attach Compendium, Do Not Delete/merge, [id number] 3 14:33:24 chlamydia trachomatis + neisseria gonorrhoeae + trichomonas vaginalis DNA panel, RIKA+probe, unspecified specimen 2022 023 [facility], [address] [facility] [address], [place], [address], 3 08:10:25 urinalysis, dipstick 2022 023 [facility] In-Office Order, Internal Use Only DO Not Attach Compendium DO Not Attach Compendium, Do Not Delete/merge, 3 09:35:55 test, urine 2022 023 [facility] In-Office Order, Internal Use Only DO Not Attach Compendium DO Not Attach Compendium, Do Not Delete/merge, 3 09:35:29 culture, urine 2022 023 [facility], [address] [facility] [address], [place], [address], 3 10:35:54 test, urine 2022 023 [facility] In-Office Order, Internal Use Only DO Not Attach Compendium DO Not Attach Compendium, Do Not Delete/merge, 3 10:59:39 rapid SARS CoV 2 Ag, QL IA, respiratory specimen 2022 023 In-Office Order, Internal Use Only DO Not Attach Compendium DO Not Attach Compendium, Do Not Delete/merge, 3 10:47:25 rapid strep group A, throat 2022 023 In-Office Order, Internal Use Only DO Not Attach Compendium DO Not Attach Compendium, Do Not Delete/merge, 3 10:47:26 chlamydia trachomatis + neisseria gonorrhoeae + trichomonas vaginalis DNA panel, RIKA+probe, unspecified specimen 2022 023 [facility], [address] [facility], [facility] [address], [place], [address], 3 04:36:17 rapid flu (A+B) 2021 022 In-Office Order, Internal Use Only DO Not Attach Compendium DO Not Attach Compendium, Do Not Delete/merge, 2 11:57:08 rapid strep group A, throat 2021 022 In-Office Order, Internal Use Only DO Not Attach Compendium DO Not Attach Compendium, Do Not Delete/merge, [id number] 11:57:08 rapid SARS CoV 2 Ag, QL IA, respiratory specimen 2021 022 In-Office Order, Internal Use Only DO Not Attach Compendium DO Not Attach Compendium, Do Not Delete/merge, [id number] 11:57:08 Referral None recorded. Procedures None recorded. Surgeries None recorded. Imaging XR, chest, 2 view - HOLD AND CALL 2022 023 [facility] (Radiology), [address] [facility] , [place], [address], 3 11:01:25 Medication Orders azithromyci n 250 mg tablet 2022 023 [id number], [address], [place], [place], [id number], 3 14:32:07 albuterol sulfate HFA 90 mcg/actuati on aerosol inhaler 2022 023 [facility], [address], [place], [place], [id number], 3 11:00:50 Patient TargetsNo targets recorded. Patient Instructions Encounter Date Encounter Id Patient Instructions Last Modified By Organization Details Last Modified Time 04/26/2022 [id number] coronavirus (covid-19): care instructions Not available 04/29/2022 11:57:08 06/26/2022 [id number] cough in teens: care instructions Not available 07/16/2022 16:08:18 Quitting Tobacco : Care Instructions Not available 07/16/2022 16:08:24 07/17/2022 [id number] frequent urination: care instructions Not available 07/20/2022 [...] DO Not Attach Compendium, Do Not Delete/merge, [id number] 04/26/2022 11:59:54 04/26/20 22 04/26/2022 rapid SARS CoV 2 Ag, QL IA, respi rator y speci men rapid SARS CoV 2 Ag, QL IA, respiratory specimen positi ve Not Available In-Office Order Internal Use Only DO Not Attach Compendium DO Not Attach Compendium, Do Not Delete/merge, [id number] 04/26/2022 12:00:14 04/29/20 22 04/29/2022 rapid flu (A+B) Flu A negati ve Not Available In-Office Order Internal Use Only DO Not Attach Compendium DO Not Attach Compendium, Do Not Delete/merge, [id number] 04/26/2022 11:59:29 04/29/20 22 04/29/2022 rapid flu (A+B) Flu B negati ve Not Available In-Office Order Internal Use Only DO Not Attach Compendium DO Not Attach Compendium, Do Not Delete/merge, [id number] 04/26/2022 11:59:29 06/20/19 23 06/22/2022 CT, NG, TRICH VAG BY RIKA chlamydia by RIKA Negati ve negati ve Not Available [facility] ([facility]) [address] [place], [address], 06/22/2022 04:36:17 06/20/19 23 06/22/2022 CT, NG, TRICH VAG BY RIKA gonococcus by RIKA Negati ve negati ve Not Available [facility] ([facility]) [address] [place], [address], 06/22/2022 04:36:17 06/20/19 23 06/22/2022 CT, NG, TRICH VAG BY RIKA trich vag by RIKA Negati ve negati ve Not Available [facility] ([facility]) [address] [facility], [place], [address], 06/22/2022 04:36:17 06/20/19 23 06/20/2022 pregn miranda test, urine HCG negati ve Not Available In-Office Order Internal Use Only DO Not Attach Compendium DO Not Attach Compendium, Do Not Delete/merge, [id number] 06/20/2022 10:43:40 06/20/19 23 06/20/2022 rapid strep group A, throa t Strep negati ve Not Available In-Office Order Internal Use Only DO Not Attach Compendium DO Not Attach Compendium, Do Not Delete/merge, [id number] 06/20/2022 10:45:16 06/20/19 23 06/20/2022 rapid SARS CoV 2 Ag, QL IA, respi rator y speci men rapid SARS CoV 2 Ag, QL IA, respiratory specimen negati ve Not Available In-Office Order Internal Use Only DO Not Attach Compendium DO Not Attach Compendium, Do Not Delete/merge, [id number] 06/20/2022 10:45:11 07/18/19 23 07/21/2022 URINE CULTU RE,CO MPREH ENSIV E urine culture,comp rehensive Final report abnormal Not Available [facility] ([facility]) [address] [facility], [place], [address], 07/21/2022 10:35:54 07/18/19 23 07/21/2022 URINE CULTU [...] 4,000 Colon ies/m L Not Available [facility] ([facility]) [address] [facility], [place], [address], 07/21/2022 10:35:54 07/18/1907/21/2022 URINE CULTU RE,CO MPREH [...] thopr im/Willams lfa S Not Available [facility] ([facility]) [address] [facility], [place], [address], 07/21/2022 10:35:54 07/19/19 23 07/18/2022 urina lysis [...] DO Not Attach Compendium, Do Not Delete/merge, [id number] 07/17/2022 10:39:39 07/19/19 23 07/18/2022 urina lysis [...] 07/18/2022 urina lysis , dipst ick Specific Newcomb 1.025 Not Available In-Off ice Order Internal Use Only DO Not Attach Compendium DO Not Attach Compendium, Do Not Delete/merge, 07/17/2022 10:39:39 07/19/1907/18/2022 urina lysis , dipst ick Ketone Negati [...] DO Not Attach Compendium, Do Not Delete/merge, [id number] 07/17/2022 10:39:39 07/24/19 23 07/23/2022 pregn miranda test, urine HCG negati ve Not Available In-Office Order Internal Use Only DO Not Attach Compendium DO Not Attach Compendium, Do Not Delete/merge, [id number] 07/17/2022 10:39:41 08/08/19 23 08/09/2022 CT, NG, TRICH VAG BY RIKA chlamydia by RIKA Negati ve negati ve Not Available [facility] ([facility]) [address] [facility], [place], [address], 08/11/2022 08:10:25 08/08/19 23 08/09/2022 CT, NG, TRICH VAG BY RIKA gonococcus by RIKA Negati ve negati ve Not Available [facility] ([facility]) [address] [facility], [place], [address], 08/11/2022 08:10:25 08/08/19 23 08/09/2022 CT, NG, TRICH VAG BY RIKA trich vag by RIKA Negati ve negati ve Not Available [facility] ([facility]) [address] [facility], [place], [address], 08/11/2022 08:10:25 08/08/19 23 08/11/2022 URINE CULTU RE,CO MPREH ENSIV E urine culture,comp rehensive Final report Not Available [facility] ([facility]) [address] [place], [address], 08/11/2022 08:10:25 08/08/19 23 08/11/2022 URINE CULTU RE,CO MPREH ENSIV E result 1 Commen t No growt h in 36 - 48 hours . Not Available [facility] ([facility]) [address] [facility], [place], [address], 08/11/2022 08:10:25 08/09/1908/08/2022 urina lysis , dipst ick Leukocytes Negati ve Not Available In-Office Order Internal Use Only DO Not Attach Compendium DO Not Attach Compendium, Do Not Delete/merge, [facility] 08/07/2022 10:45:29 08/09/1908/08/2022 urina lysis , dipst ick Nitrite negati ve Not Available In-Office Order Internal Use Only DO Not Attach Compendium DO Not Attach Compendium, Do Not Delete/merge, [facility] 08/07/2022 10:45:29 08/09/1908/08/2022 urina lysis , dipst ick Urobilinogen .2 Not Available In-Of fice Order Internal Use Only DO Not Attach Compendium DO Not Attach Compendium, Do Not Delete/merge, [facility] 08/07/2022 10:45:29 08/09/1908/08/2022 urina lysis , dipst ick Protein Negati ve Not Available In-Office Order Internal Use Only DO Not Attach Compendium DO Not Attach Compendium, Do Not Delete/merge, [id number] 08/07/2022 10:45:29 08/09/1908/08/2022 urina lysis , dipst ick pH 7.0 Not Available In-Office Order Internal Use Only DO Not Attach Compendium DO Not Attach Compendium, Do Not Delete/merge, [facility] 08/07/2022 10:45:29 08/09/19 23 08/08/2022 urina lysis , dipst ick Blood Negati ve Not Available In-Office Order Internal Use Only DO Not Attach Compendium DO Not Attach Compendium, Do Not Delete/merge, [id number] 08/07/2022 10:45:29 08/09/1908/08/2022 urina lysis , dipst ick Specific Newcomb 1.030 Not Available In-Off ice Order Internal Use Only DO Not Attach Compendium DO Not Attach Compendium, Do Not Delete/merge, [facility] 08/07/2022 10:45:29 08/09/1908/08/2022 urina lysis , dipst ick Ketone Negati ve Not Available In-Office Order Internal Use Only DO Not Attach Compendium DO Not Attach Compendium, Do Not Delete/merge, [facility] 08/07/2022 10:45:29 08/09/19 23 08/08/2022 urina lysis , dipst ick Bilirubin Negati ve Not Available In-Office Order Internal Use Only DO Not Attach Compendium DO Not Attach Compendium, Do Not Delete/merge, [facility] 08/07/2022 10:45:29 08/09/19 23 08/08/2022 urina lysis , dipst ick Glucose Negati ve Not Available In-Office Order Internal Use Only DO Not Attach Compendium DO Not Attach Compendium, Do Not Delete/merge, [facility] 08/07/2022 10:45:29 08/09/19 23 08/08/2022 urina lysis , dipst ick Appearance Clear Not Available In-Offi ce Order Internal Use Only DO Not Attach Compendium DO Not Attach Compendium, Do Not Delete/merge, [facility] 08/07/2022 10:45:29 08/09/19 23 08/08/2022 urina lysis , dipst ick Color Yellow Not Available In-Office Order Internal Use Only DO Not Attach Compendium DO Not Attach Compendium, Do Not Delete/merge, [facility] 08/07/2022 10:45:29 08/09/19 23 08/08/2022 pregn miranda test, urine HCG negati ve Not Available In-Office Order Internal Use Only DO Not Attach Compendium DO Not Attach Compendium, Do Not Delete/merge, [facility] 08/07/2022 10:45:27 Result Notes None recorded. Problems Name Problem SNOMED Code Status Onset Date Resolution Date Notes Provider Name and Address Organization Details Recorded Time Otitis externa 0430525 Active Effie Noyola MA null, [place] - [facility] 6 15:31:43 Obesity 889928873 Active Mary Mullen MD Attn: Accounting,[address] [place] [address], [id number], [facility] - [facility] 6 15:47:10 Problem Notes None recorded. Medical [...] 3 157.48 cm 22.9 kg/m2 67 % 59304.0 5 g 95 % 95 % 139 /min 24 /min 98.6 [degF] 112 /min 142 mm[Hg] 98 mm[Hg] ANGELA Huff [place] - [facility] 3 10:35:28 Date Recorded Body weight Oxygen saturation Oxygen saturation in Arterial blood by Pulse oximetry Respiratory rate Heart rate Body temperature Systolic blood pressure Diastolic blood pressure Provider Name and Address Organization Details Last Updated DateTime 3 49795.0 5 g 98 % 98 % 20 /min 84 /min 97 [degF] 112 mm[Hg] 68 mm[Hg] YULY Rod NP Attn: Guillermo selam,[address] [place], [address], [place] - [facility] 3 16:07:08 Date Recorded Body height Body mass index (BMI) Body mass index (BMI) [Percentile] Per age and sex Body weight Oxygen saturation Oxygen saturation in Arterial blood by Pulse oximetry Heart rate Respiratory rate Body temperature Systolic blood pressure Diastolic blood pressure Provider Name and Address Organization Details Last Updated DateTime 3 157.48 cm 24 kg/m2 75 % 82125.6 g 98 % 98 % 92 /min 18 /min 98.9 [degF] 108 mm[Hg] 70 mm[Hg] ANGELA Huff [place] - [facility] 3 14:28:31 Date Recorded Body height Body mass index (BMI) Body mass index (BMI) [Percentile] Per age and sex Body weight Oxygen saturation Oxygen saturation in Arterial blood by Pulse oximetry Heart rate Respiratory rate Body temperature Systolic blood pressure Diastolic blood pressure Provider Name and Address Organization Details Last Updated DateTime 3 157.48 cm 23.2 kg/m2 69 % 12348.2 3 g 96 % 96 % 98 /min 16 /min 98.2 [degF] 110 mm[Hg] 72 mm[Hg] ANGELA Huff [place] - [facility] 3 10:42:35 Date Recorded Body height Body mass index (BMI) Body mass index (BMI) [Percentile] Per age and sex Body weight Oxygen saturation Oxygen saturation in Arterial blood by Pulse oximetry Heart rate Body temperature Systolic blood pressure Diastolic blood pressure Provider Name and Address Organization Details Last Updated DateTime 2 157.48 cm 22.9 kg/m2 67 % 67207.0 5 g 99 % 99 % 88 /min 100.9 [degF] 108 mm[Hg] 68 mm[Hg] ANGELA Huff [place] - [facility] 2 11:58:04 Social History Question Answer Notes LastModified by Organizat ion Details LastModified Time Tobacco Smoking Status Never Smoker Effie Noyola MA [facility], [place] - [facility] 12/21/2014 16:10:34 Animal Exposure? Yes Crabs [email or web address] Information not available 09/27/2016 What Is Your Level Of Caffeine Consumption? Moderate [email or web address] Information not available 12/21/2014 What Type Of Medical Microbiologist Do You Use? None [email or web address] Information not available 09/27/2016 What Type Of Diet Are You Following? REGULAR [email or web address] Information not available 12/21/2014 Have There Been Any Changes To Your Family Or Social Situation? No [email or web address] Information not available 09/27/2016 What Is The Fluoride Status Of Your Home? Fluoridated [email or web address] Information not available 09/27/2016 Are There Any Guns Present In Your Home? No [email or web address] Information not available 12/21/2014 What Is Your Home Situation? Father Dad, Brothers, Sister, And Grandparents [email or web address] Information not available 09/27/2016 Do You Use Insect Repellent Routinely? Yes [email or web address] Information not available 12/21/2014 Car Seat Type Or Seat Belt? Seat Belt [email or web address] Information not available 12/21/2014 Parent Involvement? Mom Not Involved Bio Mom Sometimes Involved [email or web address] Information not available 11/04/2016 Riding In Car Front Seat? Yes [email or web address] Information not available 09/27/2016 What Was The Date Of Your Most Recent Tobacco Screening? 07/17/2022 Information not available 07/17/2022 What Is Your Parents' Marital Status? Unmarried Information not available 09/27/2016 Pool Exposure No [email or web address] Information not available 12/21/2014 What Is The Name Of Your School? [employer] [email or web address] Information not available 12/20/2015 Do You Have Any Siblings? 1 Sister, 2 Brothers [email or web address] Information not available 12/21/2014 Do You Have Smoke And Carbon Monoxide Detectors In Your Home? Yes [email or web address] Information not available 12/21/2014 Are You Passively Exposed To Smoke? Yes Gma, Dad Smoke [email or web address] Information not available 09/27/2016 What Types Of Sporting Activities Do You Participate In? Softball, Volleyball em Information not available 04/21/2017 Do You Use Sunscreen Routinely? Yes [email or web address] Information not available 12/21/2014 Has Tobacco Cessation Counseling Been Provided? Yes Information not available 06/20/2022 On What Date Was Tobacco Cessation Counseling Provided? 06/20/2022 Information not available 06/20/2022 Year In School 7 [email or web address] Information not available 11/04/2016 Sex: Unknown Functional Status Question Answer Note LastModified by Organizat ion Details LastModified Time Do you or have you ever used any other forms of tobacco or nicotine? Yes Information not available 08/07/2022 What is your level of alcohol consumption? None Information not available 04/25/2022 Do you or have you ever used smokeless tobacco? Never used [email or web address] tobacco Information not available 08/07/2022 Do you or have you ever used e-cigarettes or vape? Current user of electronic cigarettes Information not available 08/07/2022 What is your exercise level? Moderate [email or web address] Information not available 12/21/2014 Mental Status Question Answer Note LastModified by Organizat ion Details LastModified Time Are you or have you been involved with bullying? Yes gets picked on at school [email or web address] Information not available 09/27/2016 Family History Relationship Description Onset Age of this Age Resolved Age Notes LastModified by Organization Details LastModified Time Maternal Grandmother Hypertensive disorder [email or web address] Not available 2015 15:31:43 Maternal Grandmother Heart disease [email or web address] Not available 2015 15:31:43 Father No current problems or disability [email or web address] Not available 04/2017 14:05:01 Mother Hypertensive disorder [email or web address] Not available 09/16 14:05:17 Medical History Condition Response Blood Diseases N Ear or Hearing Problems N Thyroid Problems N Depression N Developmental or Behavioral Disorders N Skin Problems N Premature N Anemia N Constipation N Diabetes N Anxiety Disorder N Muscle, Joint, or Bone Problems N Bedwetting N Vision or Eye Problems N Seizures/Epilepsy N Heart Problems/Murmur N Head Injury/Concussion N Cancer N Asthma [...] Recorded Time HPV9 6 completed Not Available [facility] 06/05/2019 02:41:25 Meningococcal MCV4O 6 completed Not Available [facility] 06/05/2019 02:31:36 HPV9 6 completed Not Available [facility] 06/05/2019 02:46:39 Influenza, split virus, quadrivalent, PF 6 completed Not Available [facility] 06/05/2019 02:44:54 HPV9 7 completed Not Available [facility] 06/05/2019 02:33:33 Hep A, ped/adol, 2 dose [...] - [facility] 12/20/2014 18:13:46 DTaP 5 completed [place] - [facility] [...] - [facility] 12/20/2014 18:13:46 DTaP-IPV 0 completed [place] [facility] 12/20/2014 18:13:46 pneumococcal conjugate PCV 7 6 completed [place] [facility] 12/20/2014 18:13:46 MMR 5 completed [place] [facility] 12/20/2014 18:13:46 Hep A, ped/adol, 2 dose 7 completed [place] [facility] 12/20/2014 18:13:46 Hib, unspecified formulation 4 completed [place] [facility] 12/20/2014 18:13:46 Tdap 5 completed Not Available [facility] 06/05/2019 02:29:58 meningococcal conjugate quadrivalent, MenACWY-TT (MCV4) 2 completed [place], [place] - [facility] 02/07/2022 12:24:24 Past Encounters Encounter ID Performer Location Encounter Start Date Encounter Closed Date Diagnosis/Indication Diagnosis SNOMED-CT Code Diagnosis ICD10 Code Diagnosis Note [id number] MD Jeanne Billy (Peds) [address] [place] [address] 12/21/2014 15:36:07 12/21/2014 17:23:22 Well child [id number] discussed routine child development associate teacher discussed safety and school performanc e discussed healthy weight with diet and exercise Otitis externa 9573004 [id number] MD Jeanne Billy (Peds) [address] [place] [address] 12/20/2015 15:20:34 12/20/2015 17:57:36 Well child 163097740 Z00.129 discussed routine child development associate teacher discussed safety and school performanc e discussed healthy weight with diet and exercise Obesity 771381932 E66.09 weight reduction with diet and exercise [id number] Jose Alfredo Mullen MD [facility] (Peds) [address] [place] [address] 03/27/2016 08:54:24 03/28/2016 08:20:38 Active or passive immunization 907023488 Z23 [id number] Tameka Mckeon MD [facility] (Peds) [address] [place] [address] 09/27/2016 13:52:03 10/04/2016 12:10:48 Seasonal allergic rhinitis 577924317 J30.2 Infection of skin 702596 000 L08.9 Sore throat 274828897 J0 2.9 RApid strept negative, post-nasal drip. Supportive care discussed. [id number] Jose Alfredo Mullen MD [facility] (Peds) [address] [place] [address] 11/04/2016 14:12:37 11/05/2016 12:03:08 Well child 800475516 Z00.129 discussed routine child development associate teacher discussed safety and school performanc e discussed healthy weight with diet and exercise [id number] Rafael Rosa MD [facility] (Peds) [address] [place] [address] 04/21/2017 12:09:35 04/22/2017 10:15:51 Viral upper respiratory tract infection 656084747 J06.9 [id number] Tomer zamora [facility] [address] [place] [address] 02/07/2022 12:04:26 02/11/2022 16:15:08 Active or passive immunization 392145575 Z23 [id number] [facility] [address] [place] [address] 04/01/2022 10:58:49 04/05/2022 14:01:32 Impetigo 35488691 L01.00 -To use as directed.- To alert clinic if no improvemen t and will swab area on .- To alert clinic if any new or worsening symptoms. Pruritic rash 59296600 L 28.2 -to help with itching. [id number] YULY Rod NP [facility] [address] [place] [address] 04/25/2022 09:26:53 04/30/2022 10:46:55 Eruption 973309665 R21 -To use as directed. Tinea pedis 1651052 B35. 3 Bite of bed bug 47659459 0 W57.XXXA -Scabies vs. bed bugs. Will cover with treatment. [id number] YULY Rod NP [facility] [address] [place] [address] 04/26/2022 11:48:28 04/30/2022 10:57:03 COVID-19 451060445 U07.1 -To quarantine for 5 days-[facility] fluid intake-Can use tylenol or ibuprofen for fever or pain-ER precaution s discussed. Unlikely cellulitis due to no pain or swelling. No warmth or worsening erythema today.-To alert clinic if any new or wosening symptoms. [id number] Henry Burciaga MD [facility] [address] [place] [address] 06/20/2022 10:17:49 06/26/2022 12:06:37 Persistent cough 074715803 R05.3 -To take as directed.- Increase fluid intake-Can use tylenol or ibuprofen for fever or pain-To alert clinic if any new or wosening symptoms.- Will do lung recheck next week-ER precaution s. At [facility] risk of sexually transmitted infection 845099766 Z20.2 -Safe sex discussed. [id number] Henry Burciaga MD [facility] [employer] [facility] [address] [place] [address] 06/26/2022 10:26:43 07/18/2022 14:42:15 Persistent cough 484210182 R05.3 -Lungs improved.- Increase fluid intake-Cou gh can reside for up to one month after viral illness. Smoker 22499835 F17.301 [id number] Henry Burciaga MD [facility] [address] [place] [address] 07/17/2022 10:35:31 07/24/2022 15:55:31 Increased frequency of urination 207771554 R35.0 -Will culture and wait to treat. Negative STI panel 2 weeks ago. On current cycle now. Back pain likely from menstrual cycle. Can take ibuprofen every 6 hours for pain. Pt states understand ing.-Incre ase fluid intake-To alert clinic if any new or worsening symptoms.- Pt to schedule annual exam. [id number] Henry Burciaga MD [facility] [employer] [facility] [address] [place] [address] 08/07/2022 10:27:02 08/15/2022 09:40:16 History of urinary tract infection 7563406197 107 Z87.440 -To bring urine sample into [...] Recorded Advance Directives Directive None Recorded Payers Insurance Date Sequence Insurance Name Policy Number Policy Gonzalez Covered Member ID Gonzalez Member ID Guarantor Name 08/15/2022 1 [employer] (MEDICAID REPLACEMENT - HMO) Itz Chaney [id number] Sydnie Teixeira 06/26/2022 1 [facility] - DOS PRIOR TO 2020 (MEDICAID REPLACEMENT - HMO) Itz Chaney [id number] Sydnie Teixeira Notes Date Note Type Note Provider Name and Address Organization Details Recorded Time 04/26/2022 text/html Upper Respirator y SymptomsReported bypatient.Location:[facility] Quality:productive cough;colored phlegm;congested Context:sick contact Associated Symptoms:no [...] N/V/D. YULY Rod NP Attn: Accounting, [address] [facility], [place], [address], [facility] 04/29/2022 11:57:36 06/20/2022 text/html Upper Respirator y [...] complaints. YULY Rod NP Attn: Accounting, [address] [facility], [place], [address], [facility] 06/20/2022 11:44:33 06/26/2022 text/html Asthma F/UReport ed [...] admit to smoking. YULY Rod NP Attn: Accounting,[address] [place], [address], [facility] 07/16/2022 16:08:51 07/17/2022 text/html Urinary FrequencyReported bypatient.Context:succ [...] Bleeding is normal. No fever. No N/V/D. YUYL Rod NP Attn: Accounting,[address] [place], [address], [facility] 07/20/2022 11:56:43 08/07/2022 text/html Urinary FrequencyReported bypatient.Context:succ [...] no urge incontinence Pt [facility] today [place] [facility] [place]. Pt was seen in [...] Regular. YULY Rod NP Attn: Accounting[address] [place], [address], [facility] 08/12/2022 15:19:07 OBGyn Episode No OBEpisode recorded.
--- OUTSIDE RECORDS SUMMARY | 2024-11-04 14:51 | XMS_ITS | Data Portability ---
Author Organization [facility], Main Office Address [address] [place] [address] Assessment No assessment recorded. Plan of Treatment Reminders Order Date Submit Date Provider Last Modified By Organization Details Last Modified Time Details Appointments None recorded . Lab rapid strep group A, throat 023 08/02/[address] [place], [place], [address], 10:40:58 Referral None recorded . Procedures None [...] t STREP A negati ve Not Available [address] [place], [place], [address], 08/01/2022 09:43:27 Result Notes None recorded. Problems Name Problem SNOMED Code Status Onset Date Resolution Date Notes Provider Name and Address Organization Details Recorded Time Pain in throat 774338635 Active 023 Ken Staton MD [address], [place], [address] , [facility] 08/01/2022 09:43:23 Asthma 101345386 Active 023 Ken Staton MD [address], [place], [address] , [facility] 08/02/2022 06:01:48 Problem Notes None recorded. Medical [...] % 96 % 109 /min 98.1 [degF] 58543.6 g 122 mm[Hg] 80 mm[Hg] Not Available [facility] 3 01:52:56 Date Recorded Body height Body mass index (BMI) Body mass index (BMI) [Percentile] Per age and sex Body weight Body temperature Heart rate Oxygen saturation Oxygen saturation in Arterial blood by Pulse oximetry Systolic blood pressure Diastolic blood pressure Provider Name and Address Organization Details Last Updated DateTime 3 157.48 cm 23.6 kg/m2 72 % 93524.4 2 g 97.9 [degF] 79 /min 99 % 99 % 122 mm[Hg] 80 mm[Hg] ANGELA Neumann [place] - [facility] 3 09:38:58 Social History None recorded. Functional Status None recorded. Mental Status None recorded. Family History Relationship Description Onset Age of this Age Resolved Age Notes LastModified by Organization Details LastModified Time Maternal Grandmother Diabetes mellitus [id number] Not available 07/18/2022 01:52:40 Maternal Grandmother Hypertensive disorder [id number] Not available 07/18/2022 01:52:40 Medical History Condition [...] SHINGLES N FEMALE PROBLEMS / INFECTIONS N BOWEL PROBLEMS N DEPRESSION (INCLUDING POST ) N STROKE/TIA N THYROID DISEASE N ULCERS [...] N EDEMA N CHRONIC PAIN SYNDROME N CONSTIPATION N CAROTID BLOCKAGE N BACK / NECK PROBLEMS N HAVE YOU BEEN HOSPITALIZED OR SEEN IN [facility] ER IN THE PAST YEAR ? N [...] SNOMED-CT Code Diagnosis ICD10 Code Diagnosis Note [id number] Ken Staton MD [facility] [place] [address] [place] [address] 07/04/2022 00:00:00 07/04/2022 20:43:18 [id number] Ken Staton MD [facility] [place] [address] [place] [address] 08/01/2022 09:27:38 08/01/2022 09:55:22 Pain in throat 368569099 R07.0 Gargles with warm salt water. Drink hot tea with honey and use throat lozenges and ibuprofen. Asthma 300772769 J45.90 9 Continue inhalers Health Concerns Section Related Observation LastModified by Organization Detai ls LastModified Time None Recorded Concern Status LastModified by Organization Details LastModified Time None Recorded Advance Directives Directive None Recorded Payers Insurance Date Sequence Insurance Name Policy Number Policy Gonzalez Covered Member ID Gonzalez Member ID Guarantor Name 08/01/2022 1 [facility] B[employer]EFIT PLAN MANAGEMENT (PPO) Sydnie Teixeira [id number] Rafael Chaney Notes Date Note Type Note Provider Name and Address Organization Details Recorded Time 08/01/2022 text/html Here today c/o s.t. It is red. Has had strept throat in the past. Doing ok with meds. Uses inhaler 3 times a day and it helps. Ken Staton MD [address] [facility], [facility] [address], [place], [address], [place] [facility] [employer] 08/02/2022 06:02:28 OBGyn Episode No OBEpisode recorded.
[2024-11-04 14:59] LABS: EDSTREPNEGPOS1 Negative (Negative)
[2024-11-04 15:00] LABS: EDSTREPNEGPOS1 Negative (Negative)
--- NOTE | 2024-11-04 15:09 | ED_ITS ---
HPI - General Adult General Chief complaint: Upper Respiratory Infection Stated complaint: throat pain Source: patient Mode of arrival: ambulatory Limitations: no limitations History of Present Illness HPI narrative: Patient presents for evaluation of sore throat. Symptom onset 3 days ago, with worsening yesterday. She denies any fever, chills, nausea, vomiting, diarrhea. She has an occasional cough denies otalgia. No recent sick contacts to her knowledge. She tried taking DayQuil which helped with some nasal congestion but now with her sore throat. She does not smoke. She visualized white exudate in her posterior pharynx which prompted her to come in today. Related Data Allergies Allergy/AdvReac Type Severity Reaction Status Date / Time No Known Allergies Allergy Verified 11/04/24 14:47 Review of Systems Review of Systems: CONSTITUTIONAL: Denies fever, chills, or sweats. EYES: Denies visual changes, redness, or discharge. ENT: Reports sore throat and nasal congestion. Denies otalgia.. CARDIOVASCULAR: Denies chest pain, palpitations, or edema. RESPIRATORY: Reports occasional cough. Denies shortness of breath. GASTROINTESTINAL: Denies abdominal pain, nausea, vomiting, or diarrhea. GENITOURINARY: Denies dysuria or hematuria. SKIN: Denies rash or itching. MUSCULOSKELETAL: Denies back pain, joint pain, or myalgia. NEUROLOGIC: Denies headache, numbness, dizziness, or weakness. PSYCHIATRIC: Denies anxiety or depression. PMFSH Past Medical History Medical History Fracture of right wrist Surgical History Surgical History No history of previous surgery Family History Family History Mother Family history non-contributory Social History Social History Smoking status: Never smoker Alcohol intake: never Substance use: never Living arrangements: with family Additional living arrangements comments: Lives with uncle Occupation/Education: student Gender identity (if verbalized by the patient): Female Exam Narrative: GENERAL: Well-appearing, well-nourished, and in no acute distress. HEAD: Normocephalic, atraumatic. EYES: PERRLA and EOMI. ENT: Nares clear, no rhinorrhea or epistaxis. Mucous membranes moist. There is white exudate in the posterior pharynx. Bilateral TMs pearly villa nonbulging NECK: Supple. No adenopathy or masses. No carotid bruits or JVD CHEST: Clear to auscultation. No respiratory distress. No wheezes rales or r honchi HEART: Regular rate and rhythm. No murmur heard. Normal peripheral pulses. ABDOMEN: Soft, nontender, nondistended, normal active bowel sounds. EXTREMITIES: Normal range of motion. No edema. SKIN: Warm, dry, no rash. NEURO: No focal deficits. Alert and oriented x3. PSYCH: Normal mood and affect. Course Course Emergency Course: This is a 19-year-old female who presented for evaluation of sore throat. Rapid strep negative. Will send throat culture. Start Augmentin. Follow-up with primary provider. Go to the ER for worsening symptoms. Pt in agreement with plan of care. Level of Care: Express Care Visit Vital Signs Vital signs: Vital Signs Temperature 36.7 C 11/04/24 14:42 Pulse Rate 11/04/24 14:42 Respiratory Rate 11/04/24 14:42 Blood Pressure 140/78 11/04/24 14:42 Pulse Oximetry 11/04/24 14:42 Oxygen Delivery Room Air 11/04/24 14:42 Temperature 36.7 C 11/04/24 14:42 Pulse Rate 11/04/24 14:42 Respiratory Rate 11/04/24 14:42 Blood Pressure 140/78 11/04/24 14:42 Pulse Oximetry 11/04/24 14:42 Oxygen Delivery Room Air 11/04/24 14:42 Medical Decision Making Vital Signs Vital Signs: Vital Signs Temperature 36.7 C 11/04/24 14:42 Pulse Rate 11/04/24 14:42 Respiratory Rate 11/04/24 14:42 Blood Pressure 140/78 11/04/24 14:42 Pulse Oximetry 11/04/24 14:42 Oxygen Delivery Room Air 11/04/24 14:42 Temperature 36.7 C 11/04/24 14:42 Pulse Rate 11/04/24 14:42 Respiratory Rate 20 11/04/24 14:42 Blood Pressure 140/78 11/04/24 14:42 Pulse Oximetry 100 11/04/24 14:42 Oxygen Delivery Room Air 11/04/24 14:42 Lab Data Labs: Lab Results 11/04/24 11/04/24 Range/Units 14:50 14:58 POC Grp A Strep Screen Negative Negative (Negative) Discharge Plan Discharge Clinical Impression: Pharyngitis Patient Disposition: Home Condition: Stable Instructions: Antibiotic Form, Pharyngitis (ED) Patient Language: Danish Prescriptions: New amoxicillin-pot clavulanate 875-125 mg tablet 1 tablet PO Q12H Qty: 20 0RF Follow-up/Referrals: Monty Maldonado MD [Physician] - Time of Disposition: 15:08
== END 2024-11-04 15:13 | disposition home or self-care (01) ==
PROVIDERS: Emergency Provider Nurse Practitioner
DX: J02.9 Acute pharyngitis, unspecified (principal)
CPT/HCPCS: 87081; 87880; 99213; G0463

== ENCOUNTER 2025-01-21 19:43 | Emergency (ER) | payer OTHER, MEDICAID, SELFPAY ==
--- OUTSIDE RECORDS SUMMARY | 2025-01-21 19:45 | XMS_ITS | Clinical Summary ---
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 Gender Identity Not on file Sexual Orientation [...] 65.8 kg (145 lb) 07/04/2023 2:39 PM REGIONAL CLINICAL DIRECTOR Height 157.5 cm (5' 2) 07/04/2023 2:39 PM REGIONAL CLINICAL DIRECTOR Body Mass Index 26.52 07/04/2023 2:39 PM REGIONAL CLINICAL DIRECTOR Plan of Treatment Health Maintenance Due Date Last Done Comments Depression Screening 2004 Hepatitis C Screening 2004 Pneumococcal vaccine <65 (1 of 1 - PPSV23, PCV20, or PCV21) 01/30/2010 05/27/2005, 2004, 2004, Additional history exists Meningococcal B Vaccine (1 o f 2 - Standard) 2020 Regular Well Visit/Exam 18-64 01/30/2022 DTaP/Tdap/Td Vaccine (7 - Td or Tdap) 12/21/2024 12/21/2014, 01/16/2010, 05/27/2005, Additional history exists Influenza Vaccine (#1) 2025 9, 03/27/2016, 04/16/2012, Additional history exists Hepatitis B Screening Completed 2004 , 2004, 2004, Additional history exists Varicella Vaccines Completed 03/02/2008, 03/06/2005 HPV Vaccines Completed 11/04/2016, 1101/2016, 12/20/2015 Meningococcal Vaccine Completed 02/07/2022, 016 [facility] AL[facility]GIANCE CIGNA ALLEGIANCE [place] [facility] [place] [address] [place] [address] IDPA Care Teams Gambling Cashier Relationship Specialty Start Date End Date No, Physician PCP - General 07/04/23
[2025-01-21 19:47] VITALS: BP 135/104; PULSE 120; RESP 18; TEMP 36.6; O2SAT 96
--- NOTE | 2025-01-21 19:49 | ED.URI ---
HPI - URI/Sore Throat General Chief Complaint: Upper Respiratory Infection Stated Complaint: Chest Pain When Breathing Time Seen by Provider: 01/21/25 19:49 Source: patient Mode of arrival: ambulatory Limitations: no limitations History of Present Illness HPI Narrative: 19 yo F presents with c/o cough, chest congestion for 4 days. Today feels SOB, wheezing. had inhaler from last visit to urgent care but ran out yesterday. No hx of asthma. pt states exposed to a lot of smoke at home. Cigarettes and marijuana. All systems reviewed and negative except as noted above. Related Data Allergies Allergy/AdvReac Type Severity Reaction Status Date / Time No Known Allergies Allergy Verified 11/04/24 14:47 [facility] Past Medical History Medical History Fracture of right wrist Surgical History Surgical History No history of previous surgery Family History Family History Mother Family history non-contributory Social History Social History Smoking status: Never smoker Alcohol intake: never Substance use: never Living arrangements: with family Additional living arrangements comments: Lives with uncle Occupation/Education: student Gender identity (if verbalized by the patient): Female Comments At time of signature, agree with nursing past medical, surgical, social and family history. There is no relevant family history pertinent to the presenting complaint. Exam Narrative: GENERAL: This is a well-nourished, well-developed patient, in no apparent distress. HEAD: normocephalic, atraumatic. EYES: PERRL. Sclera clear/white. Vision is grossly intact. EARS: External ears normal, auditory canals clear and without drainage, TMs normal without perforation. Hearing grossly intact. NOSE: External nose normal with no obvious nasal discharge, nares without redness, no rhinorrhea. THROAT: Mucous membranes moist, posterior pharynx clear. NECK: Neck supple, non-tender without lymphadenopathy, masses or thyromegaly. CARDIOVASCULAR: Regular rate and rhythm without murmurs, gallops, or rubs. RESPIRATORY: wheezing, coarse, tight throughout all lung coronado. Breath sounds equal bilaterally. No rales or rhonchi. SKIN: warm, Dry, intact with no suspicious lesions or rash, good texture and turgor. NEURO: awake, alert, and oriented to person, place and time. There were no obvious focal neurologic abnormalities. EXTREMITIES: No joint tenderness, effusion, or edema noted. Course Course Level of Care: Express Care Visit Reevaluation(s) Reevaluation #1: wheezing and coarseness improved. HR 113, 98% RA Vital Signs Vital signs: Vital Signs Temperature 36.6 C 01/21/25 19:47 Pulse Rate 120 H 01/21/25 19:47 Respiratory Rate 18 01/21/25 19:47 Blood Pressure 135/104 H 01/21/25 19:47 Pulse Oximetry 96 01/21/25 19:47 Oxygen Delivery Room Air 01/21/25 19:47 Temperature 36.6 C 01/21/25 19:47 Pulse Rate 113 H 01/21/25 20:02 Respiratory Rate 20 01/21/25 20:02 Blood Pressure 136/90 01/21/25 19:52 Pulse Oximetry 98 01/21/25 20:02 Oxygen Delivery Room Air 01/21/25 19:47 reviewed MDM - URI/Sore Throat MDM Narrative Medical decision making narrative: No resp distress noted. Wheezing improved after duoneb. 98% RA at discharge. Differential Diagnosis Differential diagnosis: Likely upper respiratory infection, viral infection and bronchitis Discharge Plan Discharge Clinical Impression: Acute bronchitis Patient Disposition: Home Condition: Stable Instructions: Acute Bronchitis (ED) Additional Instructions: Start prednisone prescription tonight. Use inhaler every 4 to 6 hours as needed for cough, wheezing, shortness of breath. See your doctor in 1 week. If you are having difficulty breathing go to the ER. Patient Language: Frisian Prescriptions: New prednisone 20 mg tablet 40 mg PO DAILY 5 Days Qty: 10 0RF albuterol sulfate 90 mcg/actuation HFA aerosol inhaler 2 puff inhalation Q4-6H PRN (Reason: shortness of breath or wheezing) Qty: 8.5 0RF (DME) Aerochamber Plus Z Stat Spacer See Rx Instructions .Route Qty: 1 0RF Rx Instructions: As directed Follow-up/Referrals: PHYSICIAN,RN LABOR DELIVERY [Primary Care Provider, Internal Medicine] Time of Disposition: 20:12
[2025-01-21 19:52] VITALS: BP 136/90
[2025-01-21] MEDS: IPRATROPIUM 0.5 MG/ALBUTEROL SULFATE 2.5 MG AMPUL.NEB 3 ML INHALATION (19:58)
[2025-01-21 20:02] VITALS: PULSE 113; RESP 20; O2SAT 98
== END 2025-01-21 20:14 | disposition home or self-care (01) ==
PROVIDERS: Emergency Provider Nurse Practitioner Family
DX: J20.9 Acute bronchitis, unspecified (principal)
CPT/HCPCS: 94640; 99213; G0463